=== PATIENT | female | born 2000 | race Caucasian/White ===

== ENCOUNTER 2024-11-17 13:52 | Outpatient (CLI) | payer BC, SELFPAY ==
--- NOTE | 2024-11-17 14:00 | CRLHL7_ITS ---
For Patients: As a result of the Cures Act, medical imaging exams and procedure reports are released immediately into your electronic medical record. You may view this report before your referring provider. If you have questions, please contact your health care provider. OB ULTRASOUND LESS THAN 14 WEEKS, 11/17/2024 CLINICAL HISTORY: Dating and viability. TECHNIQUE: Real time almeida scale imaging of the fetus was performed. Transvaginal imaging performed. COMPARISON: None. FINDINGS: IMAGING: TV. LMP: 09/19/2024. DAVI by LMP: 06/26/2025. GA: 8 weeks 3 days. CRL: 1.1 cm, 7 weeks 2 days. DAVI 07/04/2025. FHR: 147 bpm. GEST SAC: 2.6 cm, appears WNL. YOLK SAC: 3.1 mm, appears WNL. RIGHT OV: WNL 3.2 X 2.0 X 2.6 cm. CL LEFT OV: WNL 3.1 X 1.9 X 1.9 cm IMPRESSION: Single living intrauterine measuring 7 weeks 2 days and sonographic due date 07/04/2025. Shemar Marshall M.D. Diagnostic Radiologist [email or web address] Transcribed: 10:22 am DW/Dictated by: Shemar Marshall MD @ 11/18/2024 6:39:00 AM (Electronically Signed)
== END 2024-11-17 13:53 | disposition home or self-care (01) ==
LOC: US 13:53
PROVIDERS: Visit Provider Physician Assistant
DX: Z34.91 Encounter for supervision of normal pregnancy, unspecified, first trimester (principal); Z3A.01 Less than 8 weeks gestation of pregnancy
CPT/HCPCS: 76817; 83021; 86703; 86706; 86803; 86850; 86900; 86901; 87086; 87340; 87491; 87591

== ENCOUNTER 2024-11-17 15:15 | Outpatient (CLI) | payer BC, SELFPAY ==
[2024-11-17 21:19] LABS: GC DNA Amplified* NOT DETECTED (No Detected)
[2024-11-17 21:26] LABS: Chlamydia DNA Amplified* DETECTED (No Detected)
== END 2024-11-17 15:16 | disposition home or self-care (01) ==
PROVIDERS: Visit Provider Physician Assistant
DX: Z34.01 Encounter for supervision of normal first pregnancy, first trimester (principal)
CPT/HCPCS: 83020; 83021; 85660; 86592; 86703; 86704; 86706; 86762; 86787; 86803; 86850; 86900; 86901; 87086; 87340; 87491; 87591

== ENCOUNTER 2024-12-15 15:31 | Outpatient (CLI) | payer BC, SELFPAY | END 2024-12-15 15:32 | disposition home or self-care (01) | PROVIDERS: Visit Provider Registered Nurse | DX: Z34.91 Encounter for supervision of normal pregnancy, unspecified, first trimester (principal); Z3A.11 11 weeks gestation of pregnancy | CPT/HCPCS: 87491; 87591 ==

== ENCOUNTER 2025-02-17 08:40 | Outpatient (CLI) | payer BC, SELFPAY | END 2025-02-17 08:41 | disposition home or self-care (01) | LOC: US 08:41 | PROVIDERS: Visit Provider Obstetrics & Gynecology | DX: O26.892 Other specified pregnancy related conditions, second trimester (principal); Z82.79 Family history of other congenital malformations, deformations and chromosomal abnormalities; Z3A.20 20 weeks gestation of pregnancy | CPT/HCPCS: 76811 ==

== ENCOUNTER 2025-03-13 14:16 | Outpatient (CLI) | payer OTHER, BC, SELFPAY ==
--- OUTSIDE RECORDS SUMMARY | 2025-03-13 14:19 | XMS_ITS | Clinical Summary ---
Author Organization [place] Address [address] [place] [id number] Care Team Providers Care Computer Clerk Name Role Phone Clinic, [facility] Unavailable + No Ref-Primary, Physician Primary Care Provider [facility] Unavaila ble Allergies No known active allergies Medications senna (SENOKOT) 8.6 MG tablet Take 8.6 mg by mouth 2 Active ondansetron (ZOFRAN) 4 MG tablet Take 4 mg by mouth 2 Active norethindrone-eth inyl estradiol (MICROGESTIN 06/29) 1-20 MG-MCG tablet Take 1 tablet by mouth daily 2 Active lidocaine (XYLOCAINE) 2 % external gel Apply 1 Application topically 2 Active ibuprofen (ADVIL/MOTRIN) 600 MG tablet Take 600 mg by mouth 2 Active hydrOXYzine (ATARAX) 25 MG tablet Take 25-50 mg by mouth 2 Active gabapentin (NEURONTIN) 100 MG capsule Take 100 mg by mouth 2 Active cyclobenzaprine (FLEXERIL) 10 MG tablet Take 10 mg by mouth 2 Active acetaminophen (TYLENOL) 325 MG tablet Take 650 mg by mouth 2 Active enoxaparin ANTICOAGULANT (LOVENOX) 40 MG/0.4ML syringe 2 Active Active Problems Problem Noted Date Diagnosed Date Anxiety disorder, unspecified type 03/13/2022 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 Bandemia 06/14/2021 Traumatic brain injury, with out loss of consciousness, subsequent encounter 06/14/2021 Thrombocytosis 06/14/2021 Acute blood loss anemia 06/14/2021 Immunizations Immunization Administration Dates Next Due Comvax (HIB/HepB) 07/24/2001,2000,09/19/19 01 DTAP (<7y) 09/05/2005, 2,01/29/2001,11/22,2000 HPV Quadrivalent 02/03/2014,03/27/2013, 3 Hepatitis A (Vaqta/Havrix)(P eds 12m-18y) 01/08/2013,09/29/2009 Influenza (H1N1) 07/11/2009 Influenza (IIV3) PF 03/02/2004, 3,04/02/2002,06/23,05/13/2001 Influenza Intranasal Vaccine 04/30/2011,03/15/20 10 Influenza Vaccine >6 months,quad, PF 04/08/2020 Influenza Vaccine, 6+MO IM (QUADRIVALENT W/PRESERVATIVES) 04/07/2019 MMR (MMRII) 09/05/2005,07/24/2001 Meningococcal ACWY (Menactra ) 01/08/2013 Nasal Influenza Vaccine 2-49 (FluMist) 3 Pneumococcal (PCV 7) 10/21/2001,01/30/20 01,2000,09/18 Polio, Unspecified 09/05/2005 Poliovirus, inactivated (IPV) 04/23/2001, 001,2000 TDAP (Adacel,Boostrix) 01/08/2013 Varicella (Varivax) 10/16/2007,07/24/2001 Social History Tobacco Use Types Packs/Day Years Used Date Smoking Tobacco: Never Smokeless Tobacco: Never PHQ-2 Answer Date Recorded PHQ-2 Score 0 03/13/2022 Adolescent Education Answer Date Record ed Getting School Help Needed Not on file 03/26 Comments Unknown Sex and Gender Information Value Date Recorded Sex Assigned at Not on file Legal Sex Female 4:17 AM [employer] Gender Identity Not on file Sexual Orientation Not on file Last Filed Vital Signs Vital Sign Reading Time Taken Comments Blood Pressure 118/80 03/13/2022 10:01 AM CDT Pulse 88 03/13/2022 10:01 AM CDT Temperature 36.8 C (98.2 F) 03/13/2022 10:01 AM CDT Respiratory Rate 20 03/13/2022 10:01 AM CDT Oxygen Saturation 97% 03/13/2022 10:01 AM CDT Inhaled Oxygen Concentration - - Weight 52.2 kg (115 lb) 03/13/2022 10:01 AM CDT Height 152.4 cm (5') 03/13/2022 10:01 AM CDT Body Mass Index 22.46 03/13/2022 10:01 AM CDT Plan of Treatment Health Maintenance Due Date Last Done Comments ADVANCE CARE PLANNING 2000 ANNUAL REVIEW OF HM ORDERS 2000 CHLAMYDIA SCREENING 2000 YEARLY PREVENTIVE VISIT 2003 HIV SCREENING 2015 HEPATITIS C SCREENING 2018 DTAP/TDAP/TD VACCINE (7 - Td or Tdap) 01/08/2023 01/08/2013, 09/05/2005, 01/29/2002, Additional history exists PHQ-2 (once per calendar year) 2024 03/13/2022 PAP 02/07/2025 02/07/2022 COVID-19 VACCINE (3 - season) 2025 06/21/2021, 09/16/2020 INFLUENZA VACCINE (#1) 2025 , 04/07/2019, 03/27/2013, Additional history exists ZOSTER VACCINE (1 of 2) 2050 HEPATITIS B VACCINE Completed 07/24/2001, 2000, 2000 PNEUMOCOCCAL VACCINE: PEDIATRICS (0 to 5 YEARS) AND AT-RISK PATIENTS (6 to 49 YEARS) Aged Out 10/21/2001, 01/29/2001, 2000, Additional history exists No longer eligible based on patient's age to complete this topic MENINGITIS VACCINE Aged Out 01/08/2013 No longer eligible based on patient's age to complete this topic HPV VACCINE Completed 02/03/2014, 03/10, 01/08/2013 MENINGITIS B VACCINE Aged Out No long er eligible based on patient's age to complete this topic Insurance [employer] [facility] Care Teams Computer Clerk Relationship Specialty Start Date End Date Clinic, [place] [address] PCP - * 05/03/17 No Ref-Primary, Physician PCP - General 05/03/17 Clinic - [address] [address] Assigned PCP 07/04/23
--- OUTSIDE RECORDS SUMMARY | 2025-03-13 14:19 | XMS_ITS | Clinical Summary ---
Author Organization [facility] Address [address] [place] [address] Care Team Providers Care Tv News Director Name Role Phone Needs Pcp, Assignment Primary Care Provider [phone] Source Comments You are receiving this document as you are listed as the primary care provider,follow-up provider, or the patient has been referred to you for consultation.This is in compliance with the Medicare and[facility] EHR Incentive Program,which states Providers who transition their patient to another setting of careor provider of care or refers their patient to another provider of care shouldprovide summary care record for each transition of care or referral. [facility] Allerg[facility] No known active allergies Medications norethindrone-et hinyl estradiol (LOESTRIN) 1mg-20mcg tablet Take 1 Tablet by mouth daily. 90 Tablet 3 11/25/2022 Active Active Problems No known active problems Immunizations Immunization Administration Dates Next Due 4vHPV (Gardasil) 02/03/2014,03/27/2013, 3 DTaP 09/05/2005, 2,01/29/2001,2000,2000 Flu Vac (3+ yrs) 03/02/2004, 3,04/02/2002,2001,05/13/2001 Fluzone Qiv Multidose Vial 0 .25 (6-35 Mos) 04/07/2019 [id number] 07/11/2009 HepA Ped/Adol (1-18 yrs) 01/08/2013,09/29/2009 Hib/HBV 07/24/2001,2000,2000 IPV (Polio) 04/23/2001,2000,2000 Influenza IIV4 (Quadrivalent ) 0.5mL (16297) 04/08/2020 Influenza LAIV (Nasal, 2-49 yrs) 03/27/2013 Influenza LAIV3 2-49 years (Flumist) 04/30/2011, 03/15/2010 Carmen COVID-19 Vaccine 09/16/2020 MCV4 (Menactra) 01/08/2013 MMR 09/05/2005,07/24/2001 Moderna Monovalent 12+ 06/21/2021 Pneumococcal 7, PED 10/21/2001, 1,2000,2000 Polio, Unspecified Formulation 09/05/2005 Tdap 01/08/2013 Varicella 10/16/2007,07/24/2001 Family History Medical History Relation Name Comments Asthma Father Asthma Mother Hypertension Mother Relation Name Status Comments Father Alive Mother Alive Social History Tobacco Use Types Packs/Day Years Used Date Smoking Tobacco: Never Smokeless Tobacco: Never Tobacco Cessation:Counseling Given: Not Answered Alcohol Use Standard Drinks/Week Comments Yes 0 (1 standard drink = 0.6 oz pur e alcohol) AUDIT-C Answer Date Recorded Q1: How often do you have a drink containing alc ohol? 2-4 times a month 04/08/2020 Average Number of Drinks Not on file 020 Frequency of Binge Drinking Not on file 03/12 Comments No Sex and Gender Information Value Date Recorded Sex Assigned at Not on file Legal Sex Female 5:41 AM CDT Gender Identity Not on file Sexual Orientation Not on file Last Filed Vital Signs Vital Sign Reading Time Taken Comments Blood Pressure 111/78 01/28/2023 2:15 PM CDT Pulse 87 01/28/2023 2:15 PM CDT Temperature 37.1 C (98.8 F) 01/23/2021 12:48 PM CDT Respiratory Rate 16 01/23/2021 12:48 PM CDT Oxygen Saturation 98% 01/23/2021 4:01 PM CDT Inhaled Oxygen Concentration - - Weight 53.3 kg (117 lb 6.4 oz) 01/28/2023 2:15 P M CDT Height 154.9 cm (5' 1) 01/28/2023 2:15 PM CDT Body Mass Index 22.18 01/28/2023 2:15 PM CDT Plan of Treatment Health Maintenance Due Date Last Done Comments Hep C Screening (Preventive Services) 2000 HIV Screening (Preventive Services) 2016 DTaP/Tdap/Td Vaccine (7 - Tdap) 01/08/2023 01/08/2013, 09/05/2005, 01/29/2002, Additional history exists Chlamydia 02/07/2023 02/07/2022, 04/08/2020 Adult Preventive Visit 01/29/2024 3, 02/07/2022, 04/08/2020 Cervical Cancer Screening 02/07/2025 02/07/2022 COVID-19 Vaccine ( season) 2025 06/21/2021, 09/16/2020 Influenza Vaccine (#1) 2025 0, 04/07/2019, 03/27/2013, Additional history exists Zoster/Shingles Vaccine (1 of 2) 2050 HepB Vaccine Completed 07/24/2001, 11/08, 2000 Hib Vaccine Completed 07/24/2001, 11/08, 2000 Pneumococcal Vaccine Aged Out 10/21/2001, 01/29/2001, 2000, Additional history exists No longer eligible based on patient's age to complete this topic IPV (Polio) Vaccine Completed 09/05/2005, 04/23/2001, 2000, Additional history exists Varicella Vaccine Completed 10/16/2007, 07/24/2001 HepA Vaccine Completed 01/08/2013, 09/29/2009 MCV4 Vaccine Aged Out 01/08/2013 No longer eligi ble based on patient's age to complete this topic HPV Vaccine Completed 02/03/2014, 03/10, 01/08/2013 Meningococcal B Vaccine Aged Out No l onger eligible based on patient's age to complete this topic Procedures Procedure Name Priority Date/Time Associated Diagnosis Comments CHLAMYDIA & GC (14 YEARS & OLDER) Routine 02/07/2022 11:44 AM CDT Routine health maintenance CYTOLOGY (PAP) Routine 02/07/2022 11:44 AM CDT Routine health maintenance from Last 3 Months or Most Recently Relevant to Health Maintenance Results * PAP Test (02/07/2022 11:44 AM CDT) Case Report Pap Case: [id number] Authorizing Provider: Xiomy Gardner MD Collected: 02/07/2022 1144 Ordering Location: [facility] Received: 02/07/2022 1229 and Gynecology First Screen: Jeniffer Holder CT (ASCP) Specimen: Pap Test, Routine, Cervix/Endocervix 02/27/2022 12:49 PM [facility] Pap Specimen Adequacy Satisfactory for evaluation, endocervical/york sformation zone component present. 02/27/2022 12:49 PM [facility] Pap Interpretation (NILM) Negative for intraepithelial lesion or malignancy. 02/27/2022 12:49 PM [facility] at 1249 CDT Pap Other Findings Fungal organisms morphologically consistent with Trinidad spp. 02/27/2022 12:49 PM [facility] Pap Disclaimer The Pap test is a screening test designed to aid in the detection of cervical cancer and its precursor lesions. It is not a diagnostic procedure and should not be used as the sole means of detecting cervical cancer. Both false-positive and false-negative results may occur. 02/27/2022 12:49 PM [facility] Gross Description The specimen is received in SurePath fixative and properly labeled. 1 Pap-stained SurePath slide is prepared. 02/27/2022 12:49 PM [facility] Embedded Images 12:49 PM [facility] Other Specimen Type ENTIRE ENDOCERVIX / Unknown 02/07/2022 11:44 AM CDT 02/07/2022 12:29 PM CDT Comment:LMP: No LMP recorded . us Xiomy Gardner MD LAB PATHOLOGY [place] [address], [facility] [phone] * Chlamydia & GC (14 Years and Older) (02/07/2022 11:44 AM CDT) Chlamydia Trachomatis STD Not Detected Not Detected 02/07/2022 7:30 PM CDT [facility] N. gonorrhoeae STD Not Detected Not Detected 02/07/2022 7:30 PM CDT [facility] Swab STD SPECIMEN FROM VAGINA / Unknown Non-blood Collection / Unknown 02/07/2022 11:44 AM CDT 02/07/2022 12:28 PM CDT [facility] - 02/07/2022 7:30 PM CDT Test performed by [employer] Mediated Amplification (TMA). us Xiomy Gardner MD LAB_1 Final Resul t [facility] [address] [address], [facility] [phone] from Last 3 Months or Most Recently Relevant to Health Maintenance Insurance [facility] PMAP ADULT DENTAL [facility] PMAP CARE PMAP Care Teams Tv News Director Relationship Specialty Start Date End Date Needs Pcp, [place] [address] PCP - General 01/23/21
--- OUTSIDE RECORDS SUMMARY | 2025-03-13 14:19 | XMS_ITS ---
Author Organization [facility] Source Produ ction (ClinicalSummary Clone) Address Unknown Care Team Providers Care Bowl Topper Name Role Phone Unavailable Primary Care Physician Unavailab le Results * [UNITY] CARRIER SCREEN Performed by: [employer] Component Value Range Date Sickle Cell Disease/Beta-Thalassemia/Hemo globinopathies carrier screen NEGATIVE 01/26/2025 06:41 am [facility] Alpha-Thalassemia carrier screen NEGATIVE 01/26/2025 06:41 am [facility] Cystic Fibrosis carrier screen NEGATIVE 01/26/2025 06:41 am [facility] Spinal Muscular Atrophy carrier screen NEGATIVE 2 SMN1 copies, SNP not present 01/26/2025 06:41 am [facility] For detailed report, see PDF See PDF 01/26/2025 06:41 am [place] 01/26/2025 06:4 1 am [facility] Social History Observation Value Start Date End Date
--- OUTSIDE RECORDS SUMMARY | 2025-03-13 14:19 | XMS_ITS ---
Author Organization [facility] Source Produ ction (ClinicalSummary Clone) Address Unknown Care Team Providers Care Forest Manager Name Role Phone Unavailable Primary Care Physician Unavailab le Results * [UNITY] ANEUPLOIDY NIPT Performed by: [employer] Component Value Range Date Fraction 9.4% 01/20/2025 11 :45 pm UTC 22q11.2 Microdeletion LOW RISK <1 in 10,000 01/20/2025 11:45 pm UTC Sex Chromosome Aneuploidy NOT DETECTED 11:45 pm UTC Monosomy X LOW RISK <1 in 10,000 2024 11:45 pm UTC Trisomy 13 LOW RISK <1 in 10,000 2024 11:45 pm UTC Trisomy 18 LOW RISK <1 in 10,000 2024 11:45 pm UTC Trisomy 21 LOW RISK <1 in 10,000 2024 11:45 pm UTC Sex FEMALE 01/20/2025 11:4 5 pm UTC Gestation APPIAH 01/21/20 11:45 pm UTC For detailed report, see PDF See PDF 01/20/2025 11:45 pm UTC 01/20/2025 11:4 5 pm UTC Social History Observation Value Start Date End Date
[2025-03-13 14:21] VITALS: BP 123/81; PULSE 96; RESP 16; TEMP 37.1; O2SAT 96; BMI 25.8
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
--- NOTE | 2025-03-13 14:53 | PC.NURSE ---
spoke to OB and pt to OB triage, medically cleared by Dr. Santos
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
[2025-03-13 16:03] VITALS: PULSE 83; O2SAT 95
[2025-03-13 16:04] VITALS: BP 103/58; PULSE 72
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
== END 2025-03-13 17:11 | disposition home or self-care (01) ==
LOC: ED 14:51 → OB OUT 14:51 → OB 14:52
PROVIDERS: Emergency Provider Emergency Medicine Emergency Medical Services; Visit Provider Obstetrics & Gynecology
DX: O26.893 Other specified pregnancy related conditions, third trimester (principal); R10.9 Unspecified abdominal pain; Z3A.25 25 weeks gestation of pregnancy
CPT/HCPCS: 59025; 99284; G0463

== ENCOUNTER 2025-04-19 16:15 | Outpatient (CLI) | payer BC, SELFPAY | END 2025-04-19 16:16 | disposition home or self-care (01) | PROVIDERS: Visit Provider Physician Assistant | DX: Z34.93 Encounter for supervision of normal pregnancy, unspecified, third trimester (principal) | CPT/HCPCS: 86592 ==

== ENCOUNTER 2025-04-21 08:25 | Outpatient (CLI) | payer BC, SELFPAY | END 2025-04-21 08:26 | disposition home or self-care (01) | LOC: NFLDREF 04-27 15:05 | PROVIDERS: Visit Provider Physician Assistant | DX: Z34.93 Encounter for supervision of normal pregnancy, unspecified, third trimester (principal) | CPT/HCPCS: 82951; 82952 ==

== ENCOUNTER 2025-05-11 12:13 | Outpatient (CLI) | payer BC, SELFPAY ==
--- NOTE | 2025-05-11 12:15 | CRLHL7_ITS ---
For Patients: As a result of the Cures Act, medical imaging exams and procedure reports are released immediately into your electronic medical record. You may view this report before your referring provider. If you have questions, please contact your health care provider. OB ULTRASOUND DAVI by US: 07/04/2025. GA: 32 w, 2 d. Single. Comparison: 02/17/2025, 11/17/2024. INDICATION: GMD, growth. TECHNIQUE: Real time grayscale imaging of the fetus was performed. Transabdominal. CERVIX: Not visualized. POSITIONING: Vertex. AMNIOTIC FLUID: 4.9 cm. SDP (N: greater than 2 x 1 cm) PLACENTA: Technique: Transabdominal. PLACENTA POSITION: Anterior. DOPPLER: heart rate: 154 bpm. BIOMETRY: BPD: 7.8 cm. 31 w, 1 d, 13.3%. HC: 28.9 cm. 31 w, 5 d, 7.6%. AC: 28.2 cm. 32 w, 2 d, 48.0%. FL: 6.0 cm. 31 w, 0 d, 10.8%. FL/AC ratio: 21.1%. HC/AC ratio: 1.0. EFW: 1829g. Weight: 4 lbs., 1 oz. age by this US: 31 w, 4 d. DAVI by this US: 07/09/2025. Percentile by DAVI: 23.7%. IMPRESSION: 1. Sonographic gestational age 31 weeks 4 days and sonographic due date 07/09/2025. Sonographic age is 5 days behind the clinical age. 2. Estimated weight 24th percentile. Abdominal circumference 48th percentile. Shemar Marshall M.D. Diagnostic Radiologist [email or web address] NICOLE/jose garcia/Dictated by: Shemar Marshall MD @ 05/11/2025 4:03:00 PM (Electronically Signed)
== END 2025-05-11 12:14 | disposition home or self-care (01) ==
LOC: US 12:14
PROVIDERS: Visit Provider Obstetrics & Gynecology
DX: O24.419 Gestational diabetes mellitus in pregnancy, unspecified control (principal); O36.5930 Maternal care for other known or suspected poor fetal growth, third trimester, not applicable or unspecified; Z3A.32 32 weeks gestation of pregnancy
CPT/HCPCS: 76816

== ENCOUNTER 2025-06-08 13:53 | Outpatient (CLI) | payer BC, SELFPAY ==
--- NOTE | 2025-06-08 14:00 | CRLHL7_ITS ---
For Patients: As a result of the Cures Act, medical imaging exams and procedure reports are released immediately into your electronic medical record. You may view this report before your referring provider. If you have questions, please contact your health care provider. OB ULTRASOUND DAVI by US: 07/04/2025. GA: 36 w, 2 d. Single. Comparison: 05/11/2025, 02/17/2025. INDICATION: GDM. TECHNIQUE: Real time almeida scale imaging of the fetus was performed. Transabdominal. CERVIX: Not visualized. POSITIONING: Vertex. AMNIOTIC FLUID: 60 cm. SDP (N: greater than 2 x 1 cm) PLACENTA: Technique: Transabdominal. PLACENTA POSITION: Anterior. DOPPLER: heart rate: 150 bpm. BIOMETRY: BPD: 8.1 cm. 32 w, 5 d, <3 percent. HC: 30.4 cm. 33 w, 6 d, <3 percent. AC: 31.9 cm. 35 w, 6 d, 47 percent. FL: 6.6 cm. 33 w, 6 d, 3.4 percent. FL/AC ratio: 20.57 percent. HC/AC ratio: 0.95. EFW: 2504 g. Weight: 5 lbs, 8 oz. age by this US: 34 w, 1 d. DAVI by this US: 07/19/2025. Percentile by DAVI: 16 percent. IMPRESSION: 1. Sonographic gestational age 34 weeks 1 day and sonographic due date 07/19/2025. Sonographic age is 15 days behind the clinical age. 2. Estimated weight 16th percentile. Abdominal circumference 47th percent. 3. BPD and HC both less than 3rd percentile. Shemar Marshall M.D. Diagnostic Radiologist [email or web address] NICOLE/jose JR/Dictated by: Shemar Marshall MD @ 06/09/2025 6:26:00 AM (Electronically Signed)
== END 2025-06-08 13:54 | disposition home or self-care (01) ==
LOC: US 13:54
PROVIDERS: Visit Provider Obstetrics & Gynecology
DX: O24.419 Gestational diabetes mellitus in pregnancy, unspecified control (principal); O36.5930 Maternal care for other known or suspected poor fetal growth, third trimester, not applicable or unspecified; Z3A.36 36 weeks gestation of pregnancy
CPT/HCPCS: 76816

== ENCOUNTER 2025-06-08 15:09 | Outpatient (CLI) | payer BC, SELFPAY ==
[2025-06-09 14:25] LABS: Strep B DNA Probe Negative (Negative)
[2025-06-09 14:45] LABS: Strep B Susceptibility Needed? No
== END 2025-06-08 15:10 | disposition home or self-care (01) ==
LOC: NFLDREF 15:39
PROVIDERS: Visit Provider Obstetrics & Gynecology
DX: Z34.03 Encounter for supervision of normal first pregnancy, third trimester (principal)
CPT/HCPCS: 87081; 87653